=== PATIENT | male | born 2000 | race Hispanic/Latino ===

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

== ENCOUNTER 2020-06-30 21:24 | Emergency (ER) | payer BC, SELFPAY ==
--- NOTE | 2020-06-30 21:58 | ER ---
Nurse's Notes [facility] Name: López Fam Age: 19 yrs Sex: Male : 2000 Arrival Date: 06/30/2020 Time: 21:31 Bed Waiting Private MD: Diagnosis: Pain in left arm Presentation: 06/30 21:46 Chief complaint: Patient states: had the J\T\J covid vaccine on Saturday, has been swollen em at the site and painful, denies trouble breathing or any anaphylaxis reaction. Coronavirus screen: Client denies travel out of the [place] in the last 14 days. Ebola Screen: Patient negative for fever greater than or equal to 101.5 degrees Fahrenheit, and additional compatible Ebola Virus Disease symptoms Patient denies exposure to infectious person. Patient denies travel to an Ebola-affected area in the 21 days before illness onset. No symptoms or risks identified at this time. Initial Sepsis Screen: Does the patient meet any 2 criteria? No. Patient's initial sepsis screen is negative. Does the patient have a suspected source of infection? No. Patient's initial sepsis screen is negative. Risk Assessment: Do you want to hurt yourself or someone else? Patient reports no desire to harm self or others. Onset of symptoms was June 30, 2020. 21:46 Method Of Arrival: Ambulatory em 21:46 Acuity: TRIPP 4 em Historical: - Allergies: 21:48 No Known Allergies; em - PMHx: 21:51 None; em - PSHx: 21:48 None; em - Immunization history:: Adult Immunizations up to date. - Social history:: Smoking status: Patient denies any tobacco usage or history of. Screenin:45 Abuse screen: Denies threats or abuse. Nutritional screening: No deficits noted. em Tuberculosis screening: No symptoms or risk factors identified. Fall Risk None identified. Assessment: 21:45 General: Appears in no apparent distress. comfortable, Behavior is calm, cooperative, em appropriate for age, Denies fever. Pain: Complains of pain in anterior aspect of left shoulder. Neuro: Level of Consciousness is awake, alert, obeys commands, Oriented to person, place, time, situation. Cardiovascular: Capillary refill < 3 seconds Patient's skin is warm and dry. Respiratory: Airway is patent Respiratory effort is unlabored, labored, Respiratory pattern is regular, symmetrical. GI: Abdomen is flat, Patient currently denies nausea, vomiting. Derm: Skin is intact, is healthy with good turgor, Skin is pink, warm \T\ dry. redness and swelling noted during palpation. Musculoskeletal: Capillary refill < 3 seconds, Range of motion: intact in all extremities. Vital Signs: 21:46 BP 114 / 65; Pulse 68; Resp 18; Temp 98.7; Pulse Ox 98% on R/A; Weight 65.77 kg; Height em 6 ft. 0 in. (182.88 cm); Pain 0/10; 21:46 Body Mass Index 19.67 (65.77 kg, 182.88 cm) em ED Course: 21:31 Patient arrived in ED. bp1 21:38 Rich Richard PA is PHCP. jmm 21:38 Janene Williamson MD is Attending Physician. jmm 21:45 Patient has correct armband on for positive identification. em 21:45 No provider procedures requiring assistance completed. Patient did not have IV access em during this emergency room visit. 21:47 Triage completed. em 21:48 Arm band placed on. em 22:00 Mak Stanton, RN is Primary Nurse. em Administered Medications: No medications were administered Outcome: 21:57 Discharge ordered by MD. [facility] 22:15 Discharged to home ambulatory. em 22:15 Condition: stable 22:15 Discharge instructions given to patient, Instructed on discharge instructions, follow up and referral plans. medication usage, Demonstrated understanding of instructions, follow-up care, medications, Prescriptions given X 1. 22:16 Patient left the ED. em Signatures: Rich Richard PA PA Mak Kennedy, RN RN em Sahra Tse bp1 Corrections: (The following items were deleted from the chart) 21:51 21:46 BP 130 / 78; Pulse 88bpm; Resp 18bpm; Pulse Ox 100% RA; Temp 98.7F; 124.74 kg; em Height 5 ft. 3 in.; BMI: 48.7; Pain 0/10; em 21:51 21:48 PMHx: gallstones; em em 21:53 21:46 BP 114 / 65; Pulse 88bpm; Resp 68bpm; Pulse Ox 98% RA; Temp 98.7F; 65.77 kg; em Height 6 ft. 0 in.; BMI: 19.6; Pain 0/10; em 22:11 21:45 Pain: Complains of pain in anterior aspect of right shoulder em em
--- NOTE | 2020-06-30 21:58 | EDPHYS ---
Physician Documentation [facility] Name: López Fam Age: 19 yrs Sex: Male : 2000 Arrival Date: 06/30/2020 Time: 21:31 Bed Waiting Private MD: ED Physician Janene Williamson HPI: 06/30 21:54 This 19 yrs old Male presents to ER via Ambulatory with complaints of Covid jmm Shot Reaction. 21:54 The patient's rash thought to be caused by left arm swelling. Onset: The jmm symptoms/episode began/occurred gradually, 3 day(s) ago. Associated signs and symptoms: Pertinent negatives: burning sensation, difficulty breathing, fever, swelling of lips, swelling of throat, swelling of tongue, vomiting, wheezing. Patient complains of left deltoid pain since injection of J and J covid vaccine. Denies fever, shortness of breath, vomiting, diarrhea. . Historical: - Allergies: 21:48 No Known Allergies; em - PMHx: 21:51 None; em - PSHx: 21:48 None; em - Immunization history:: Adult Immunizations up to date. - Social history:: Smoking status: Patient denies any tobacco usage or history of. ROS: 21:54 Constitutional: Negative for fever, chills, and weight loss, Cardiovascular: Negative jmm for chest pain, palpitations, and edema, Respiratory: Negative for shortness of breath, cough, wheezing, and pleuritic chest pain. 21:54 Skin: Positive for pain. 21:54 All other systems are negative. Exam: 21:54 Constitutional: This is a well developed, well nourished patient who is awake, alert, jmm and in no acute distress. Head/Face: atraumatic. Eyes: EOMI, no conjunctival erythema appreciated ENT: Moist Mucus Membranes Neck: Trachea midline, Supple Chest/axilla: Normal chest wall appearance and motion. Cardiovascular: Regular rate and rhythm. No edema appreciated Respiratory: Normal respirations, no respiratory distress appreciated Abdomen/GI: Non distended, soft Back: Normal ROM 21:54 Skin: left deltoid ttp, warm to touch, purulent drainage, no induration. 21:54 Neuro: Orientation: is normal, Mentation: is normal, Memory: is normal. 21:54 Psych: Behavior/mood is pleasant, cooperative. Vital Signs: 21:46 BP 114 / 65; Pulse 68; Resp 18; Temp 98.7; Pulse Ox 98% on R/A; Weight 65.77 kg; Height em 6 ft. 0 in. (182.88 cm); Pain 0/10; 21:46 Body Mass Index 19.67 (65.77 kg, 182.88 cm) em MDM: 21:56 Data reviewed: vital signs, nurses notes. Counseling: I had a detailed discussion with selina the patient and/or guardian regarding: the historical points, exam findings, and any diagnostic results supporting the discharge/admit diagnosis, the need for outpatient follow up, to return to the emergency department if symptoms worsen or persist or if there are any questions or concerns that arise at home. ED course: Patient is alert and non toxi lyla appearance in the ED. Patient is advised to follow up with pcp and otherwise given strict return precautions. patient understood and agrees with the plan of care. . 21:57 Patient medically screened. gage Administered Medications: No medications were administered Disposition: 06/30/20 21:57 Discharged to Home. Impression: Pain in left arm. - Condition is Stable. - Prescriptions for Cephalexin 500 mg Oral Capsule - take 1 capsule by ORAL route every 6 hours for 10 days; 40 capsule. - Medication Reconciliation Form, Thank You Letter, Antibiotic Education, Prescription Opioid Use form. - Follow up: Private Physician; When: 2 - 3 days; Reason: Recheck today's complaints, Continuance of care, Re-evaluation by your physician. Addendum: 07/03/2020 19:06 Co-signature as Attending Physician, Janene Williamson MD. m a2 Signatures: Rich Richard PA PA jmm Munoz, Edgar, RN RN Janene Patino MD MD [facility] Corrections: (The following items were deleted from the chart) 04 21:51 21:48 PMHx: gallstones; em em 22:16 21:57 06/30/2020 21:57 Discharged to Home. Impression: Pain in left arm. Condition is em Stable. Forms are Medication Reconciliation Form, Thank You Letter, Antibiotic Education, Prescription Opioid Use. Follow up: Private Physician; When: 2 - 3 days; Reason: Recheck today's complaints, Continuance of care, Re-evaluation by your physician. anahim
[2020-07-01 08:45] VITALS: BP 114/65; TEMP 98.7; O2SAT 98
== END 2020-06-30 22:16 | disposition home or self-care (01) ==
LOC: ER 21:24
DX: M79.602 Pain in left arm (principal)
CPT/HCPCS: 99282

== ENCOUNTER 2021-08-11 08:22 | Emergency (ER) | payer SELFPAY ==
--- NOTE | 2021-08-11 09:59 | RAD REPORT ---
EXAM DESCRIPTION: US - Scrotum Testicles - 08/11/2021 9:42 am CLINICAL HISTORY: Left testicular pain COMPARISON: PELVIS dated 07/18/2013 FINDINGS: The right testicle 3.6 x 3.0 x 2.2 cm. No intratesticular masses or evidence of testicular torsion. The left testicle 4.5 x 3.4 x 2.0 cm. No intratesticular masses or evidence of testicular torsion. Both epididymides are normal in size and appearance. No pathologic fluid collections. IMPRESSION: Unremarkable study.
[2021-08-11 10:07] LABS: Urine Blood Negative (Negative); Urine Glucose Negative (Negative); Urine Protein 3+ (Negative); Urine Specific Gravity 1.025 (1.005-1.030)
[2021-08-11 10:11] LABS: Absolute Lymphocytes (CBC) 1.6 K/uL (0.7-4.9); Hematocrit 43.5 % (39.6-49.0); Lymphocytes % 30.5 % (15.3-44.8); RBC Red Blood Cell Count 4.82 M/uL (4.33-5.43)
[2021-08-11 10:15] LABS: Calcium Oxalate Crystals- Ur PRESENT (NONE SEEN); Urine Bacteria NONE SEEN /HPF (NONE SEEN); Urine Mucus LIGHT /HPF (NONE SEEN); Urine RBC NONE SEEN /HPF (NONE SEEN)
[2021-08-11] MEDS ORDERED: NA CHLORIDE 0.9% 1,000 ML ONE (10:22)
[2021-08-11 10:26] LABS: Albumin 4.3 g/dL (3.4-5.0); Bilirubin Total 0.4 mg/dL (0.2-1.0); Potassium 4.1 mmol/L (3.5-5.1); Protein, Total 7.4 g/dL (6.4-8.2)
--- NOTE | 2021-08-11 10:57 | RAD REPORT ---
EXAM DESCRIPTION: CTAbdomen Pelvis W Contrast - 08/11/2021 10:43 am CLINICAL HISTORY: Abdominal pain. LLQ abdominal pain COMPARISON: CT HEAD SPINE CAP W CONTRAST dated 07/18/2013 TECHNIQUE: Biphasic CT imaging of the abdomen and pelvis was performed with 100 ml non-ionic IV cont rast. All CT scans are performed using dose optimization technique as appropriate and may include automated exposure control or mA/KV adjustment according to patient size. FINDINGS: The lung bases are clear. The liver contains an 18 mm hypodense lesion in the left lobe of suspicious for benign hemangioma. No aggressive liver lesion is seen. No intra or extrahepatic biliary tree dilatation. The spleen, adrenal glands and kidneys are within normal limits. Small 7 mm hypodense lesion is seen in the approximate location of the pancreatic neck. No pancreatic ductal dilatation. No bowel obstruction, free air, free fluid or abscess. Prominent stool is present retained throughout the colon. The appendix is normal. No evidence of significant lymphadenopathy. Mild lower lumbar spondylosis. IMPRESSION: No acute intra-abdominal or pelvic finding. 18 mm hypodense lesion left lobe liver suspicious for hemangioma. 7 mm hypodense lesion in the pancreatic neck region, nonspecific. For these two above listed findings, nonemergent MRI of the abdomen with contrast would be helpful fo r further characterization.
--- NOTE | 2021-08-11 11:04 | RAD REPORT ---
EXAM DESCRIPTION: RAD - Chest Single View - 08/11/2021 10:58 am CLINICAL HISTORY: CHEST PAIN Chest pain. COMPARISON: Chest Single View dated 01/29/2018; CHEST SINGLE VIEW dated 07/18/2013; CHEST PA AND LAT 2 VIEW dated 07/16/2012; CHEST PA AND LAT 2 VIEW dated 08/05/2004 FINDINGS: Portable technique limits examination quality. The lungs are grossly clear. The heart is normal in size. No displaced fractures. IMPRESSION: No acute intrathoracic process suspected.
--- NOTE | 2021-08-11 12:22 | EDPHYS ---
Physician Documentation [facility] Name: López Fam Age: 20 yrs Sex: Male : 2000 Arrival Date: 08/11/2021 Time: 08:25 Bed 17 Private MD: ED Physician Janene Williamson HPI: 08/11 09:03 This 20 yrs old Male presents to ER via Ambulatory with complaints of pm1 Abdominal Pain. 09:03 The patient presents with abdominal pain in the left lower quadrant. pm1 09:03 Onset: The symptoms/episode began/occurred 1 week(s) ago. The symptoms radiate to left pm1 back. Associated signs and symptoms: Pertinent positives: blood in vomit 1 week ago that has resolved, seen at [facility] for the same complaint. Reports dark stool has continued. Patient reports pain to left testicle and feels a lump present, Pertinent negatives: nausea, vomiting, and diarrhea, chest pain, constipation, dysuria, fever, shortness of breath. The symptoms are described as achy. Modifying factors: The symptoms are alleviated by nothing, the symptoms are aggravated by nothing. Severity of pain: in the emergency department the pain is unchanged. The patient has not experienced similar symptoms in the past. The patient has not recently seen a physician. 09:03 Patient reports foot injury, left foot 1 week ago with bruising. Foot pain has resolved.pm1 Historical: - Allergies: 08:38 No Known Allergies; ap3 - Home Meds: 08:38 None [Active]; ap3 - PMHx: 08:38 None; ap3 - Immunization history:: Client reports receiving the 2nd dose of the Covid vaccine, Flu vaccine is up to date. - Social history:: Smoking status: Reported history of juuling and/or vaping. ROS: 09:03 Constitutional: Negative for fever, chills, and weight loss, Cardiovascular: Negative pm1 for chest pain, palpitations, and edema, Respiratory: Negative for shortness of breath, cough, wheezing, and pleuritic chest pain. 09:03 Back: Negative for injury and pain, : Negative for injury, bleeding, discharge, and swelling, MS/Extremity: Negative for injury and deformity, Skin: Negative for injury, rash, and discoloration, Neuro: Negative for headache, weakness, numbness, tingling, and seizure. 09:03 Abdomen/GI: Positive for abdominal pain, Negative for nausea, vomiting, and diarrhea, constipation. 09:03 All other systems are negative. 09:03 : Positive for flank pain, testicular pain of the left low back, Negative for urinary pm1 symptoms, penile pain. Exam: 09:03 Constitutional: This is a well developed, well nourished patient who is awake, alert, pm1 and in no acute distress. Head/Face: Normocephalic, atraumatic. 09:03 Skin: Warm, dry with normal turgor. Normal color with no rashes, no lesions, and no evidence of cellulitis. MS/ Extremity: Pulses equal, no cyanosis. Neurovascular intact. Full, normal range of motion. 09:03 Eyes: Exam is negative for acute changes, Periorbital structures: no acute changes, Extraocular movements: no acute changes. 09:03 ENT: Exam is negative for acute changes, Mouth: no acute changes, Lips: normal, moist, Oral mucosa: normal, pink and intact, moist. 09:03 Cardiovascular: Exam negative for acute changes, Rate: normal, Rhythm: regular, Pulses: no pulse deficits are appreciated, Heart sounds: normal, normal S1and S2. 09:03 Respiratory: Exam negative for acute changes, respiratory distress, shortness of breath. 09:03 Abdomen/GI: Inspection: abdomen appears normal, Palpation: soft, in all quadrants, mild abdominal tenderness, in the left lower quadrant. 09:03 Back: pain, that is mild, of the left low back. 09:03 : Male external genitalia: tenderness, is not appreciated, of the scrotum is noted, of the epididymis area. 09:03 Neuro: Exam negative for acute changes, Orientation: is normal, Mentation: is normal, Motor: is normal, moves all fours. 09:09 Abdomen/GI: Rectal exam: rectal tone normal, Stool: brown, guaiac negative, Candace RN pm1 insurance loss adjuster. Vital Signs: 08:35 BP 115 / 68; Pulse 54; Resp 17; Temp 98.9; Pulse Ox 100% ; Weight 56.7 kg; Height 5 ft. ap3 11 in. (180.34 cm); 08:35 Body Mass Index 17.43 (56.70 kg, 180.34 cm) ap3 MDM: 08:44 Patient medically screened. pm1 12:20 Data reviewed: vital signs. Data interpreted: Pulse oximetry: on room air is 100 %. pm1 Interpretation: normal. Counseling: I had a detailed discussion with the patient and/or guardian regarding: the historical points, exam findings, and any diagnostic results supporting the discharge/admit diagnosis, lab results, radiology results, the need for outpatient follow up, to return to the emergency department if symptoms worsen or persist or if there are any questions or concerns that arise at home. 08/11 09:03 Order name: CBC with Diff; Complete Time: 10:37 pm1 08/11 09:03 Order name: CMP; Complete Time: 10:37 pm1 08/11 09:03 Order name: Lipase; Complete Time: 10:37 pm1 08/11 09:03 Order name: Urine Microscopic Only; Complete Time: 10:37 pm1 08/11 10:07 Order name: Urine Dipstick-Ancillary; Complete Time: 10:09 EDMS 08/11 09:03 Order name: IV Saline Lock; Complete Time: 10:35 pm1 08/11 09:03 Order name: Labs collected and sent; Complete Time: 10:35 pm1 08/11 09:03 Order name: Chest Single View XRAY; Complete Time: 11:19 pm1 08/11 09:03 Order name: EKG; Complete Time: 09:04 pm1 08/11 09:03 Order name: CT Abd/Pelvis - IV Contrast Only; Complete Time: 11:19 pm08/11 09:03 Order name: US Scrotum Testicles; Complete Time: 10:00 pm08/11 09:03 Order name: Urine Dipstick-Ancillary (obtain specimen); Complete Time: 10:35 pm1 08/11 09:03 Order name: EKG - Nurse/Tech; Complete Time: 12:37 pm1 Administered Medications: 10:30 Drug: NS 0.9% 1000 ml Route: IV; Rate: 1 bolus; Site: right antecubital; nunez 13:01 Not Given (Patient Refused): Ketorolac 30 mg IVP once nunez Disposition Summary: 08/11/21 12:21 Discharge Ordered Location: Home pm1 Problem: new pm1 Symptoms: have improved pm1 Condition: Stable pm1 Diagnosis - Abdominal pain, unspecified pm1 Followup: pm1 - With: Emergency Department - When: As needed - Reason: Worsening of condition Followup: pm1 - With: Private Physician - When: 2 - 3 days - Reason: Recheck today's complaints, Continuance of care, Re-evaluation by your physician Discharge Instructions: - Discharge Summary Sheet pm1 - Abdominal Pain, Adult pm1 Forms: - Medication Reconciliation Form pm1 - Thank You Letter pm1 - Antibiotic Education pm1 - Prescription Opioid Use pm1 - Work release form nunez Prescriptions: - Diclofenac Sodium 75 mg Oral tablet,delayed release (DR/EC) - take 1 tablet by ORAL route 2 times per day As needed; 30 tablet; Refills: 0, pm1 Product Selection Permitted Signatures: Dispatcher [employer] EDMS Yayo Benitez NP DIRECTOR OF COMPENSATION pm1 Jaylyn Brantley RN RN 3 Candace Darby RN RN Corrections: (The following items were deleted from the chart) 19:24 09:03 Abdomen/GI: Positive for abdominal pain, nausea, vomiting, and diarrhea, Negative pm1 for constipation, pm1
--- NOTE | 2021-08-11 12:22 | ER ---
Nurse's Notes [facility] Name: López Fam Age: 20 yrs Sex: Male : 2000 Arrival Date: 08/11/2021 Time: 08:25 Bed 17 Private MD: Diagnosis: Abdominal pain, unspecified Presentation: 08/11 08:35 Chief complaint: Patient states: he dropped a weight on his foot approx one week ago. ap3 since then he reports abdominal pain, nausea, vomiting, some blood tinged vomit, black stools, and every once in a while a sharp pain will go from his abdomen to his chest that "takes my breath away". Patient also reports a "lump" on his left testicle that has periodic shooting pain. Coronavirus screen: At this time, the client does not indicate any symptoms associated with coronavirus-19. Ebola Screen: No symptoms or risks identified at this time. Initial Sepsis Screen: Does the patient meet any 2 criteria? No. Patient's initial sepsis screen is negative. Does the patient have a suspected source of infection? No. Patient's initial sepsis screen is negative. Risk Assessment: Do you want to hurt yourself or someone else? Patient reports no desire to harm self or others. Onset of symptoms was August 04, 2021. 08:35 Method Of Arrival: Ambulatory ap3 08:35 Acuity: TRIPP 3 ap3 Triage Assessment: 08:39 General: Appears in no apparent distress. Behavior is calm, cooperative, appropriate ap3 for age. Pain: Complains of pain in abdomen and left testicle Pain radiates to chest Pain began gradually, one week ago. EENT:. Neuro: Level of Consciousness is awake, alert, obeys commands, Oriented to person, place, time, situation, Appropriate for age Moves all extremities. Gait is steady, Speech is normal. Cardiovascular: Patient's skin is warm and dry. Respiratory: Airway is patent Respiratory effort is even, unlabored, Respiratory pattern is regular, symmetrical. GI: Reports lower abdominal pain, upper abdominal pain, nausea, vomiting. Historical: - Allergies: 08:38 No Known Allergies; ap3 - Home Meds: 08:38 None [Active]; ap3 - PMHx: 08:38 None; ap3 - Immunization history:: Client reports receiving the 2nd dose of the Covid vaccine, Flu vaccine is up to date. - Social history:: Smoking status: Reported history of juuling and/or vaping. Screenin:39 Abuse screen: Denies threats or abuse. Nutritional screening: Had unintentional weight ap3 loss of 10 pounds or more. Tuberculosis screening: No symptoms or risk factors identified. Fall Risk None identified. Assessment: 09:25 General: Appears in no apparent distress. uncomfortable, Behavior is cooperative, nunez anxious. Pain: Complains of pain in abdomen. GI: Bowel sounds present X 4 quads. Abd is soft and non tender Reports rectal bleeding, Pain is 6 out of 10 on a pain scale. bloody stool. Vital Signs: 08:35 BP 115 / 68; Pulse 54; Resp 17; Temp 98.9; Pulse Ox 100% ; Weight 56.7 kg; Height 5 ft. ap3 11 in. (180.34 cm); 08:35 Body Mass Index 17.43 (56.70 kg, 180.34 cm) ap3 ED Course: 08:25 Patient arrived in ED. ds1 08:31 Yayo Benitez NP is PHCP. pm1 08:31 Janene Williamson MD is Attending Physician. pm1 08:38 Triage completed. ap3 08:40 Arm band placed on right wrist. ap3 08:42 Candace Darby, RN is Primary Nurse. nunez 09:25 Patient has correct armband on for positive identification. Bed in low position. 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 nunez 09:44 US Scrotum Testicles In Process Unspecified. EDMS 10:45 CT Abd/Pelvis - IV Contrast Only In Process Unspecified. EDMS 11:00 Chest Single View XRAY In Process Unspecified. EDMS 13:01 IV discontinued, intact, Pressure dressing applied. nunez Administered Medications: 10:30 Drug: NS 0.9% 1000 ml Route: IV; Rate: 1 bolus; Site: right antecubital; nunez 13: Not Given (Patient Refused): Ketorolac 30 mg IVP once nunez Medication: 08:40 VIS not applicable for this client. ap3 Outcome: 12:21 Discharge ordered by . pm1 13:01 Discharged to home ambulatory. nunez 13:01 Condition: good 13:01 Discharge instructions given to patient, Prescriptions given X 1. 13:01 Patient left the ED. nunez Signatures: Dispatcher [employer] EDLA Agnieszka Landaverde ds1 Yayo Benitez, MAINTENANCE MACHINIST MAINTENANCE MACHINIST pm1 Jaylyn Brantley RN RN ap3 Candace Darby RN RN nunez
[2021-08-11] MEDS ORDERED: KETOROLAC 30 MG/ML INJ ONE (13:00)
[2021-08-11 13:05] VITALS: BP 115/68; TEMP 98.9; O2SAT 100
--- NOTE | 2021-08-12 11:07 | EKG ---
Test Date: 2021-08-11 Test Time: 12:17:36 Night Monitor: JESSE MEASUREMENT RESULTS: Intervals: Rate: 46 MA: 154 QRSD: 98 QT: 500 QTc: 437 [place]: P: 3 MA: 154 QRS: 73 T: 69 INTERPRETIVE STATEMENTS: Sinus bradycardia Early repolarization Otherwise normal ECG Compared to ECG 01/29/2018 16:34:19 Early repolarization now present ST (T wave) deviation no longer present Electronically Signed On 08-12-21 11:06:47 CDT by Shan Galarza
== END 2021-08-11 13:01 | disposition home or self-care (01) ==
LOC: ER 08:22
DX: R10.32 Left lower quadrant pain (principal)
CPT/HCPCS: 36415; 71045; 74177; 76870; 80053; 81003; 81015; 83690; 85025; 93005; 99284; J7030; Q9967

== ENCOUNTER 2021-12-04 19:16 | Emergency (ER) | payer SELFPAY ==
--- NOTE | 2021-12-04 20:51 | ER ---
Nurse's Notes [facility] Name: López Fam Age: 20 yrs Sex: Male : 2000 Arrival Date: 12/04/2021 Time: 19:20 Bed Waiting Private MD: Diagnosis: ED Course: 12/04 19:20 Patient arrived in ED. ag3 19:59 Shalom Ordaz PA is PHCP. cp 19:59 Naeem Marks MD is Attending Physician. cp 20:11 Patient's name was called from [facility]. No response. Unable to locate patient. Will as6 disposition as left without being seen by a provider. Administered Medications: No medications were administered Outcome: 20:50 Eloped from waiting room, before seeing physician as6 20:51 Patient left the ED. as6 Signatures: Shalom Ordaz PA PA cp Gomez, Alice ag3 Lane Rollins, RN RN as6
== END 2021-12-04 20:51 | disposition left against medical advice (07) ==
LOC: ER 19:16
DX: Z02.9 Encounter for administrative examinations, unspecified (principal)

== ENCOUNTER 2021-12-23 07:12 | Emergency (ER) | payer SELFPAY ==
[2021-12-23] MEDS ORDERED: PROMETHAZINE INJ 25 MG/ML AMP ONE (07:32)
[2021-12-23] MEDS ORDERED: MORPHINE 4 MG/ML SYR ONE (07:32)
[2021-12-23] MEDS ORDERED: NA CHLORIDE 0.9% 1,000 ML ONE (07:32)
[2021-12-23 07:48] LABS: Absolute Lymphocytes (CBC) 1.5 K/uL (0.7-4.9); Hematocrit 41.8 % (39.6-49.0); Lymphocytes % 10.2 % (15.3-44.8); MCV 89.1 fL (80-100); MPV 9.2 fL (7.6-11.3); RBC Red Blood Cell Count 4.69 M/uL (4.33-5.43)
[2021-12-23 07:57] LABS: Bilirubin Total 1.9 mg/dL (0.2-1.0); Potassium 3.5 mmol/L (3.5-5.1); Protein, Total 8.3 g/dL (6.4-8.2)
[2021-12-23] MEDS ORDERED: HALOPERIDOL LACT 5 MG/ML INJ ONE (08:56)
[2021-12-23] MEDS ORDERED: PANTOPRAZOLE 40 MG INJ ONE (08:56)
--- NOTE | 2021-12-23 09:15 | RAD REPORT ---
EXAM DESCRIPTION: CT - Abdomen Pelvis W Contrast - 12/23/2021 8:42 am CLINICAL HISTORY: generalized abdominal pain and vomiting COMPARISON: Abdomen Pelvis W Contrast dated 08/11/2021; CT HEAD SPINE CAP W CONTRAST dated 4 TECHNIQUE: Biphasic, helical CT imaging of the abdomen and pelvis was performed following 100 ml non -ionic IV contrast. No oral contrast administered. All CT scans are performed using dose optimization technique as appropriate and may include automated exposure control or mA/KV adjustment according to patient size. FINDINGS: No suspicious findings in the lung bases. In the left lobe near the gallbladder fossa an 18 millimeter mass is present with heterogeneous enhan cement pattern. Hemangioma is the most likely etiology. No change from the short interval July 2021 st ud[facility]. Finding is new from the 2013 CT study. Nonspecific periportal edema is present. No gallbladder o r biliary tree abnormality. No pancreatic or peripancreatic abnormality identifiable. The suspected p ancreatic or peripancreatic 7 mm cyst detailed on the July 2021 study is not identified on this examin ation. No splenomegaly or focal splenic abnormality. Symmetric renal function is seen with no hydronephrosis or suspicious renal mass. No pyelonephritis o r acute parenchymal process. No bladder abnormalities. No adrenal abnormalities. No dilated bowel loops or bowel wall thickening. Cecum is low lying along the right-side of the pelvi c floor. Appendix is not clearly defined. No direct or indirect evidence for appendicitis. No active bowel process though mild enteritis or mucosal level inflammatory changes can be occult on CT imaging . No free air, free fluid or inflammatory stranding. No hernia, mass or bulky lymphadenopathy. No acute bone findings seen. Left convex lower lumbar scoliosis noted. No acute bone finding. IMPRESSION: Contrast enhanced CT abdomen and pelvis showing no acute or emergent finding. Nonacute findings detailed in the body of the report.
[2021-12-23 10:01] LABS: Urine Blood Negative (Negative); Urine Glucose Negative (Negative); Urine Protein Trace (Negative); Urine Specific Gravity 1.025 (1.005-1.030); Urine pH 5.5 (5.0-7.0)
[2021-12-23 10:35] LABS: Urine Bacteria <20 /HPF (<20); Urine RBC <5 /HPF (None Seen)
[2021-12-23 10:36] LABS: Urine Mucus 2+ /HPF (None Seen)
[2021-12-23 10:39] LABS: Barbiturates NEGATIVE (NEGATIVE); Benzodiazepines NEGATIVE (NEGATIVE); Cocaine NEGATIVE (NEGATIVE); METHAMPHETAM NEGATIVE (NEGATIVE); Methadone NEGATIVE (NEGATIVE); Opiates POSITIVE (NEGATIVE); Phencyclidine NEGATIVE (NEGATIVE); THC Cannibis POSITIVE (NEGATIVE)
--- NOTE | 2021-12-23 10:52 | EDPHYS ---
Physician Documentation [facility] Name: López Fam Age: 21 yrs Sex: Male : 2000 Arrival Date: 12/23/2021 Time: 07:13 Bed 20 Private MD: ED Physician Laverne Miller HPI: 12/23 07:53 This 21 yrs old Male presents to ER via Ambulatory with complaints of sd2 Abdominal Pain, Vomiting. 07:53 21-year-old male presents with chief complaint of generalized abdominal pain, nausea sd2 and vomiting that has been ongoing intermittently since 04 December. The patient reports he has not been seen by anyone since this started. He did have similar symptoms he reports as a child that went away as well as back in July when he was seen here with a negative work-up and CT scan. He denies any associated objective fever or diarrhea. He does endorse using marijuana but states he has decreased his use recently and the last use was 1 week ago. He denies any alcohol or other drug use.. 08:45 Sister at bedside reports that this is an ongoing issue after the patient drinks and sd2 that this occurred last time he drank back in July. Pt reported to her that he had "a beer" last night and then these symptoms started again. He was referred to a GI specialist but has not followed up and his father has similar GI issues including ulcers.. Historical: - Allergies: 07:27 No Known Allergies; jl7 - Home Meds: 07:27 None [Active]; jl7 - PMHx: 07:27 None; jl7 - PSHx: 07:27 None; jl7 - Immunization history:: Adult Immunizations not up to date. - Social history:: Smoking status: Patient denies any tobacco usage or history of. Patient uses Reports using "Legal limit" THC, Patient/guardian denies using street drugs. ROS: 07:53 Constitutional: Negative for fever, chills, and weight loss, Eyes: Negative for injury, sd2 pain, redness, and discharge, ENT: Negative for injury, pain, and discharge, Cardiovascular: Negative for chest pain, palpitations, and edema, Respiratory: Negative for shortness of breath, cough, wheezing. : Negative for dysuria, frequency or hematuria. MS/Extremity: Negative for injury and deformity, Skin: Negative for injury, rash, and discoloration, Neuro: Negative for headache, numbness and tingling. 07:53 Abdomen/GI: Positive for abdominal pain, nausea and vomiting, Negative for diarrhea, constipation. Exam: 07:53 Constitutional: This is a well developed, well nourished patient who is awake, alert, sd2 and in distress due to actively dry heaving in room Head/Face: Normocephalic, atraumatic. Eyes: EOMI, normal conjunctiva bilaterally Chest/axilla: Normal chest wall appearance and motion. Nontender with no deformity. Cardiovascular: Regular rate and rhythm with a normal S1 and S2. No gallops, murmurs, or rubs. 2+ distal pulses. Respiratory: Lungs have equal breath sounds bilaterally, clear to auscultation and percussion. No rales, rhonchi or wheezes noted. No increased work of breathing, no retractions or nasal flaring. Abdomen/GI: Soft, non-tender, with normal bowel sounds. No guarding or rebound. No evidence of tenderness throughout. Skin: Warm, dry with normal turgor. Normal color with no rashes, no lesions, and no evidence of cellulitis. MS/ Extremity: Pulses equal, no cyanosis. Neurovascular intact. Full, normal range of motion. Ambulatory without difficulty. Psych: Awake, alert, with orientation to person, place and time. Behavior, mood, and affect are within normal limits. Vital Signs: 07:24 Temp 98.2; Weight 49.9 kg; Height 5 ft. 11 in. (180.34 cm); Pain 10/10; jl7 07:30 BP 113 / 61; Pulse 59; Resp 16; Temp 98.2; Pulse Ox 99% ; bp 09:00 BP 106 / 68; Pulse 69; Resp 16; Pulse Ox 100% ; bp 10:08 BP 96 / 43; Pulse 50; Resp 16; Pulse Ox 99% ; bp 11:17 BP 97 / 41; Pulse 47; Resp 16; Pulse Ox 97% ; bp 07:24 Body Mass Index 15.34 (49.90 kg, 180.34 cm) jl7 MDM: 07:26 Patient medically screened. sd2 07:53 Differential diagnosis: Gastritis, cholecystitis, pancreatitis, SBO, diverticulitis, sd2 kidney stone, appendicitis, UTI, dehydration, electrolyte abnormality among others. Data reviewed: vital signs, nurses notes. 10:49 Data reviewed: lab test result(s), radiologic studies. Counseling: I had a detailed sd2 discussion with the patient and/or guardian regarding: the historical points, exam findings, and any diagnostic results supporting the discharge/admit diagnosis, lab results, radiology results, the need for outpatient follow up, to return to the emergency department if symptoms worsen or persist or if there are any questions or concerns that arise at home, smoking cessation. Medical [facility] ED course: Labs and imaging reviewed. Mild leukocytosis present. Labs otherwise grossly WNCL. CTAP with no acute abnormalities. UA without infection but with 4+ ketones consistent with dehydration. Doubt DKA. Pt sleeping comfortably at time of my repeat evaluation with benign abdominal exam. COunseled on need for follow up with PCP and GI and avoidance of smoking marijuana and alcohol use. He is on omeprazole already but has not been taking it. Advised restarting. Will prescribe zofran for home.. 12/23 07:27 Order name: CBC with Diff 2 12/23 07:27 Order name: CMP 2 12/23 07:27 Order name: Lipase 2 12/23 07:27 Order name: Urine Microscopic Only 2 12/23 07:27 Order name: Urine Drug Screen 12/23 07:49 Order name: CBC with Automated Diff; Complete Time: 08:13 EDMS 12/23 07:57 Order name: Comprehensive Metabolic Panel; Complete Time: 08:13 EDMS 12/23 07:57 Order name: Lipase; Complete Time: 08:13 EDMS 12/23 08:13 Order name: CT Abd/Pelvis - IV Contrast Only 12/23 09:15 Order name: CT; Complete Time: 09:43 EDMS 12/23 10:01 Order name: Urine Dipstick-Ancillary; Complete Time: 10:33 EDMS 12/23 10:36 Order name: Urine Microscopic Only; Complete Time: 10:45 EDMS 12/23 10:39 Order name: Urine Drug Screen; Complete Time: 10:45 EDMS 12/23 07:27 Order name: IV Saline Lock; Complete Time: 07:38 sd2 12/23 07:27 Order name: Labs collected and sent; Complete Time: 07:38 sd2 12/23 07:27 Order name: Urine Dipstick-Ancillary (obtain specimen); Complete Time: 10:03 sd2 Administered Medications: 07:38 Drug: NS 0.9% 1000 ml Route: IV; Rate: 1 bolus; Site: right antecubital; bp 11:17 Follow up: IV Status: Completed infusion; IV Intake: 1000ml bp 07:38 Drug: morphine 4 mg Route: IVP; Infused Over: 4 mins; Site: right antecubital; bp 11:16 Follow up: Response: No adverse reaction; Pain is decreased bp 07:39 Drug: Phenergan (promethazine) 12.5 mg Route: IVP; Site: right antecubital; bp 11:17 Follow up: Response: No adverse reaction bp 08:59 Drug: ProTONIX (pantoprazole) 40 mg Route: IVP; Site: right antecubital; bp 11:16 Follow up: Response: No adverse reaction bp 09:00 Drug: HALdol (haloperidol) 5 mg Route: IVP; Site: right antecubital; bp 11:16 Follow up: Response: No adverse reaction bp Disposition Summary: 12/23/21 10:51 Discharge Ordered Location: Home sd2 Problem: an acute exacerbation sd2 Symptoms: have improved sd2 Condition: Stable sd2 Diagnosis - Abdominal pain, Generalized sd2 - Vomiting sd2 - Marijuana use sd2 Followup: sd2 - With: Private Physician - When: 2 - 3 days - Reason: Recheck today's complaints, Continuance of care, Re-evaluation by your physician Discharge Instructions: - Discharge Summary Sheet sd2 - Abdominal Pain, Adult sd2 - Cannabis Use Disorder sd2 - Nausea and Vomiting, Adult sd2 Forms: - Medication Reconciliation Form sd2 - Thank You Letter sd2 - Antibiotic Education sd2 - Prescription Opioid Use sd2 Prescriptions: - ondansetron 4 mg Oral tablet,disintegrating - take 1 tablet by ORAL route every 6 hours As needed; 15 tablet; Refills: 0, sd2 Product Selection Permitted Signatures: Dispatcher [employer] David Hernandez RN RN jl7 Nicolas Albert RN RN bp Laverne Miller MD MD sd2
--- NOTE | 2021-12-23 10:52 | ER ---
Nurse's Notes [facility] Name: López Fam Age: 21 yrs Sex: Male : 2000 Arrival Date: 12/23/2021 Time: 07:13 Bed 20 Private MD: Diagnosis: Abdominal pain, Generalized;Vomiting;Marijuana use Presentation: 12/23 07:24 Chief complaint: Patient states: Intermittent N/V, diffuse abdominal pain x 2 weeks, jl7 denies diarrhea, reports feeling feverish. Coronavirus screen: Vaccine status: Patient reports being unvaccinated. At this time, the client does not indicate any symptoms associated with coronavirus-19. Ebola Screen: No symptoms or risks identified at this time. Initial Sepsis Screen: Does the patient meet any 2 criteria? No. Patient's initial sepsis screen is negative. Does the patient have a suspected source of infection? No. Patient's initial sepsis screen is negative. Risk Assessment: Do you want to hurt yourself or someone else? Patient reports no desire to harm self or others. Onset of symptoms was December 04, 2021. 07:24 Method Of Arrival: Ambulatory [facility] 07:24 Acuity: TRIPP 3 jl7 Triage Assessment: 07:27 General: Appears in no apparent distress. uncomfortable, ill, Behavior is calm, jl7 cooperative, appropriate for age. Pain: Complains of pain in abdomen diffusely Pain currently is 10 out of 10 on a pain scale. GI: Reports nausea, vomiting. Historical: - Allergies: 07:27 No Known Allergies; jl7 - Home Meds: 07:27 None [Active]; jl7 - PMHx: 07:27 None; jl7 - PSHx: 07:27 None; jl7 - Immunization history:: Adult Immunizations not up to date. - Social history:: Smoking status: Patient denies any tobacco usage or history of. Patient uses Reports using "Legal limit" THC, Patient/guardian denies using street drugs. Screenin:30 Abuse screen: Denies threats or abuse. Denies injuries from another. Nutritional bp screening: No deficits noted. Tuberculosis screening: No symptoms or risk factors identified. Fall Risk None identified. Assessment: 07:30 General: SEE TRIAGE NOTE. bp 09:00 Reassessment: PT RETURNED FROM CT. bp 10:08 Reassessment: No changes from previously documented assessment. Patient and/or family bp updated on plan of care and expected duration. Pain level reassessed. 11:17 Reassessment: DC HOME. bp Vital Signs: 07:24 Temp 98.2; Weight 49.9 kg; Height 5 ft. 11 in. (180.34 cm); Pain 10/10; jl7 07:30 BP 113 / 61; Pulse 59; Resp 16; Temp 98.2; Pulse Ox 99% ; bp 09:00 BP 106 / 68; Pulse 69; Resp 16; Pulse Ox 100% ; bp 10:08 BP 96 / 43; Pulse 50; Resp 16; Pulse Ox 99% ; bp 11:17 BP 97 / 41; Pulse 47; Resp 16; Pulse Ox 97% ; bp 07:24 Body Mass Index 15.34 (49.90 kg, 180.34 cm) jl7 ED Course: 07:13 Patient arrived in ED. as 07:15 Laverne Miller MD is Attending Physician. sd2 07:27 Triage completed. jl7 07:27 Arm band placed on right wrist. jl7 07:30 Patient has correct armband on for positive identification. Bed in low position. Call bp light in reach. Side rails up X2. 07:31 Initial lab(s) drawn, by me, sent to lab. Inserted saline lock: 20 gauge in right dh3 antecubital area, using aseptic technique. Blood collected. 07:37 Nicolas Albert, RN is Primary Nurse. bp 10:06 CT Abd/Pelvis - IV Contrast Only Sent. eb 10:06 Urine Drug Screen Sent. eb 11:17 No provider procedures requiring assistance completed. IV discontinued, intact, bp bleeding controlled, No redness/swelling at site. Pressure dressing applied. Administered Medications: 07:38 Drug: NS 0.9% 1000 ml Route: IV; Rate: 1 bolus; Site: right antecubital; bp 11:17 Follow up: IV Status: Completed infusion; IV Intake: 1000ml bp 07:38 Drug: morphine 4 mg Route: IVP; Infused Over: 4 mins; Site: right antecubital; bp 11:16 Follow up: Response: No adverse reaction; Pain is decreased bp 07:39 Drug: Phenergan (promethazine) 12.5 mg Route: IVP; Site: right antecubital; bp 11:17 Follow up: Response: No adverse reaction bp 08:59 Drug: ProTONIX (pantoprazole) 40 mg Route: IVP; Site: right antecubital; bp 11:16 Follow up: Response: No adverse reaction bp 09:00 Drug: HALdol (haloperidol) 5 mg Route: IVP; Site: right antecubital; bp 11:16 Follow up: Response: No adverse reaction bp Intake: 11:17 IV: 1000ml; Total: 1000ml. bp Outcome: 10:51 Discharge ordered by . [email or web address] 11:17 Discharged to home via wheelchair, with family. bp 11:17 Condition: stable 11:17 Discharge instructions given to patient, family, Instructed on discharge instructions, follow up and referral plans. medication usage, Demonstrated understanding of instructions, follow-up care, medications, Prescriptions given X 1. 11:18 Patient left the ED. bp Signatures: Moni Thompson Jahala, RN RN jl7 Samanta Cruz 3 Nicolas Albert RN RN bp Botello, Elizabeth eb Dunlop, Stephanie, MD MD sd2
[2021-12-23 14:42] VITALS: TEMP 98.2
[2021-12-23 14:47] VITALS: BP 97/41; O2SAT 97
== END 2021-12-23 11:18 | disposition home or self-care (01) ==
LOC: ER 07:12
DX: R10.84 Generalized abdominal pain (principal); R11.10 Vomiting, unspecified; F12.90 Cannabis use, unspecified, uncomplicated
CPT/HCPCS: 36415; 74177; 80053; 80307; 81003; 81015; 83690; 85025; 96361; 96374; 96375; 99284; C9113; J1630; J2550; J7030; Q9967